=== PATIENT | female | born 1995 | race African-American/Black ===

== ENCOUNTER 2022-04-08 18:00 | Inpatient (IN) | payer BC, OTHER ==
[2022-04-09] MEDS ORDERED: Lidocaine 1% (PF) 30 ML VIAL SC PRN (04:26)
[2022-04-09] MEDS ORDERED: HYDROcodone/Acetaminophen 5/325 mg Tablet PO PRN ×3 (04:26→10:06)
[2022-04-09] MEDS ORDERED: Acetaminophen 500 MG TAB PO PRN (04:26)
[2022-04-09] MEDS ORDERED: NS w/ Oxytocin 30 units 500 ML IV SCH ×3 (04:26→10:06)
[2022-04-09] MEDS ORDERED: Lactated Ringer's 1,000 ML IV SCH (04:26)
[2022-04-09] MEDS ORDERED: Ibuprofen 800 MG TAB PO PRN (04:26)
[2022-04-09] MEDS ORDERED: Misoprostol 200 MCG TAB PR PRN (04:26)
[2022-04-09] MEDS ORDERED: Promethazine HCl 25 MG/ML VIAL IM PRN ×3 (04:26→10:06)
[2022-04-09] MEDS ORDERED: Carboprost 250 MCG/ML AMP IM PRN (04:26)
[2022-04-09] MEDS ORDERED: hydrALAZINE 20 MG/ML VIAL SLOW IVP PRN ×2 (04:26→10:06)
[2022-04-09] MEDS ORDERED: Diphenoxylate HCl/Atropine Tablet PO PRN (04:26)
[2022-04-09] MEDS ORDERED: Butorphanol Tartrate 1 MG/ML VIAL SLOW IVP PRN (04:26)
[2022-04-09] MEDS ORDERED: Methylergonovine 0.2 MG/ML VIAL IM PRN (04:26)
[2022-04-09] MEDS ORDERED: Ondansetron PF 4 MG/2 ML Vial IVP PRN ×3 (04:26→10:06)
[2022-04-09 05:18] LABS: Hemoglobin 10.3 g/dL (12.0-15.5); Mean Corpuscular Hemoglobin 22.5 pg (27.0-33.0); Mean Corpuscular Volume 70.3 fl (81.6-98.3); Platelet Count 179 10x3/uL (150-450); RBC Distribution Width 23.2 % (11.5-14.5); Red Blood Cell (RBC) Count 4.58 10x6/uL (3.90-5.03); White Blood Cell (WBC) Count 12.3 10x3/uL (3.5-10.5)
[2022-04-09 05:28] VITALS: BMI 29.4
[2022-04-09 05:35] LABS: Syphilis Antibody Nonreactive (Nonreactive); Syphilis Antibody Index 0.06 S/CO (<1.00 Non-Reactive)
[2022-04-09] MEDS ORDERED: Misoprostol 100 MCG TAB ONE (05:35)
[2022-04-09 05:36] LABS: HBSAg Index 0.19 S/CO (0-0.99); Hep B Surf Ag Non-Reactive S/CO (NonReactive)
[2022-04-09] MEDS: Misoprostol 100 MCG TAB PO SCH ×2 (05:41→10:20)
[2022-04-09] MEDS ORDERED: Penicillin G Potassium 5 MILL.UNITS in Sodium Chloride 0.9% 100 ML IVPB SCH (05:45)
[2022-04-09] MEDS ORDERED: Famotidine/PF 20 mg/2ml Vial SLOW IVP PRN (06:19)
[2022-04-09] MEDS ORDERED: Bicitra 30 ML UDCUP PO PRN (06:19)
[2022-04-09] MEDS ORDERED: Azithromycin 500 MG VIAL ONE (06:20)
[2022-04-09] MEDS ORDERED: CEFAZOLIN 2 GM in Sodium Chloride 0.9% 100 ML IVPB SCH ×2 (06:30→14:00)
[2022-04-09 06:46] LABS: RapidComm Collect By CBN; pH (Cord, venous) 7.184 (7.250-7.350)
[2022-04-09] MEDS ORDERED: Dexamethasone 4 mg/ml Vial ONE (06:46)
[2022-04-09] MEDS ORDERED: Oxytocin 10 UNITS/ML VIAL ONE ×2 (06:46)
[2022-04-09] MEDS ORDERED: Fentanyl 100 MCG/2 ML VIAL ONE ×2 (06:46→06:51)
[2022-04-09] MEDS ORDERED: Midazolam HCl 2 mg/2 ml Vial ONE (06:46)
[2022-04-09] MEDS ORDERED: PROPOFOL 20 ML ONE (06:46)
[2022-04-09] MEDS ORDERED: Ondansetron PF 4 MG/2 ML Vial ONE (06:46)
[2022-04-09] MEDS ORDERED: Succinylcholine 200 MG/10 ml SYRINGE FS ONE (06:46)
[2022-04-09] MEDS ORDERED: Ketorolac Tromethamine 30 MG/ML VIAL ONE (06:46)
[2022-04-09 06:47] LABS: RapidComm Collect By CBN
[2022-04-09] MEDS ORDERED: diphenhydrAMINE 50 MG/ML VIAL IVP PRN (06:53)
[2022-04-09] MEDS ORDERED: diphenhydrAMINE 50 MG/ML VIAL IM PRN (06:53)
[2022-04-09] MEDS ORDERED: diphenhydrAMINE 25 MG CAP PO PRN ×2 (06:53→10:06)
[2022-04-09] MEDS ORDERED: Zolpidem Tartrate 5 MG TAB PO PRN (06:53)
[2022-04-09] MEDS ORDERED: fentaNYL Citrate/PF 1,000 MCG in Sodium Chloride 0.9% 30 ML IV PRN ×2 (06:53→21:51)
[2022-04-09] MEDS ORDERED: Naloxone HCl 0.4 mg/ml Vial IV PRN (06:53)
[2022-04-09] MEDS ORDERED: Glycopyrrolate 0.2 MG/ML 5 ML SYRINGE ONE (06:53)
[2022-04-09] MEDS ORDERED: Communication Order-Pharmacy FS SCH (07:00)
[2022-04-09] MEDS: metroNIDAZOLE 500 MG in Premix Bag 1 BAG IVPB SCH ×3 (09:05→23:31)
[2022-04-09] MEDS ORDERED: Penicillin G 2.5 MILL.units 2.5 MILL.UNITS in Premix Bag 1 BAG IVPB SCH (09:45)
[2022-04-09] MEDS ORDERED: Boostrix 0.5 ML (Tdap) VIAL IM ONE (10:06)
[2022-04-09] MEDS ORDERED: Lanolin Ointment 7 GM TUBE TOP PRN (10:06)
[2022-04-09] MEDS ORDERED: Bisacodyl 10 MG SUPP PR PRN (10:06)
[2022-04-09] MEDS: Ferrous Sulfate 325 MG TAB PO SCH ×2 (11:05→21:48)
[2022-04-09] MEDS: Docusate 100 MG CAP PO SCH ×2 (11:05→21:48)
[2022-04-09] MEDS: Prenatal Vitamin 1 TAB PO SCH (11:06)
[2022-04-09] MEDS: Ketorolac Tromethamine 30 MG/ML VIAL IVP SCH ×3 (12:04→23:31)
[2022-04-09] MEDS: ceFAZolin 2 GM/Dextrose 50 ML 2 GM in Premix Bag 1 BAG IVPB SCH ×2 (14:35→21:48)
[2022-04-10 04:22] LABS: Platelet Count 148 10x3/uL (150-450)
[2022-04-10 04:23] LABS: Hemoglobin 7.8 g/dL (12.0-15.5); Mean Corpuscular Hemoglobin 22.8 pg (27.0-33.0); Mean Corpuscular Volume 71.3 fl (81.6-98.3); Red Blood Cell (RBC) Count 3.42 10x6/uL (3.90-5.03); White Blood Cell (WBC) Count 14.1 10x3/uL (3.5-10.5)
[2022-04-10] MEDS: ceFAZolin 2 GM/Dextrose 50 ML 2 GM in Premix Bag 1 BAG IVPB SCH ×3 (05:22→21:37)
[2022-04-10] MEDS: Ketorolac Tromethamine 30 MG/ML VIAL IVP SCH (05:24)
[2022-04-10] MEDS ORDERED: HYDROcodone/Acetaminophen 5/325 mg Tablet PO PRN (07:00)
[2022-04-10] MEDS: metroNIDAZOLE 500 MG in Premix Bag 1 BAG IVPB SCH ×3 (08:59→23:47)
[2022-04-10] MEDS: Simethicone Chewable 80 MG TAB PO PRN (09:00)
[2022-04-10] MEDS: HYDROcodone/Acetaminophen 5/325 mg Tablet PO PRN ×3 (09:00→21:38)
[2022-04-10] MEDS: Ferrous Sulfate 325 MG TAB PO SCH ×2 (09:00→21:37)
[2022-04-10] MEDS: Docusate 100 MG CAP PO SCH ×2 (09:03→21:38)
[2022-04-10] MEDS: Prenatal Vitamin 1 TAB PO SCH (09:03)
[2022-04-10] MEDS ORDERED: Ibuprofen 800 MG TAB PO SCH ×2 (14:00→14:30)
[2022-04-10] MEDS: Ibuprofen 800 MG TAB PO SCH (21:38)
[2022-04-11] MEDS: CEFAZOLIN 2 GM in Sodium Chloride 0.9% 100 ML IVPB SCH ×2 (06:01→14:37)
[2022-04-11] MEDS: Ibuprofen 800 MG TAB PO SCH ×3 (06:02→21:38)
[2022-04-11] MEDS: metroNIDAZOLE 500 MG in Premix Bag 1 BAG IVPB SCH ×2 (09:16→16:47)
[2022-04-11] MEDS: Ferrous Sulfate 325 MG TAB PO SCH ×2 (09:16→21:37)
[2022-04-11] MEDS: Prenatal Vitamin 1 TAB PO SCH (09:17)
[2022-04-11] MEDS: Simethicone Chewable 80 MG TAB PO PRN (09:17)
[2022-04-11] MEDS: Docusate 100 MG CAP PO SCH ×2 (09:17→21:38)
[2022-04-11] MEDS: HYDROcodone/Acetaminophen 5/325 mg Tablet PO PRN ×2 (10:04→16:05)
[2022-04-11] MEDS: metroNIDAZOLE 500 MG TAB PO SCH (21:37)
[2022-04-11] MEDS: Cephalexin 500 MG CAP PO SCH (21:38)
[2022-04-12] MEDS: Ibuprofen 800 MG TAB PO SCH ×3 (06:04→20:53)
[2022-04-12] MEDS: Prenatal Vitamin 1 TAB PO SCH (09:42)
[2022-04-12] MEDS: Docusate 100 MG CAP PO SCH ×2 (09:42→20:51)
[2022-04-12] MEDS: Cephalexin 500 MG CAP PO SCH ×3 (09:44→20:50)
[2022-04-12] MEDS: metroNIDAZOLE 500 MG TAB PO SCH ×3 (09:44→20:50)
[2022-04-12] MEDS: Ferrous Sulfate 325 MG TAB PO SCH ×2 (09:44→20:50)
[2022-04-12 22:12] VITALS: BP 119/73; TEMP 99.2
== END 2022-04-12 22:50 | disposition home or self-care (01) | DRG 788 ==
LOC: CSHLD 04-09 04:21 → CSHPP 04-09 10:50
PROVIDERS: ADMIT Family Medicine; ATTEND Family Medicine
PROC: 10D00Z1 Extraction of Products of Conception, Low, Open Approach (ICD-10-PCS; principal; 2022-04-09)
PROC: 3E0P7VZ Introduction of Hormone into Female Reproductive, Via Natural or Artificial Opening (ICD-10-PCS; 2022-04-09)
PROC: 3E0334Z Introduction of Serum, Toxoid and Vaccine into Peripheral Vein, Percutaneous Approach (ICD-10-PCS; 2022-04-09)
DX: O36.5930 Maternal care for other known or suspected poor fetal growth, third trimester, not applicable or unspecified (principal); Z3A.37 37 weeks gestation of pregnancy; Z37.0 Single live birth; O76 Abnormality in fetal heart rate and rhythm complicating labor and delivery; D64.9 Anemia, unspecified; O99.02 Anemia complicating childbirth; Z79.899 Other long term (current) drug therapy; O26.893 Other specified pregnancy related conditions, third trimester; Z67.21 Type B blood, Rh negative
CPT/HCPCS: 36415; 51702; 74018; 82805; 85027; 85461; 86780; 86850; 86870; 86900; 86901; 87340; 88307; 90384; 96372; J0690; J1100; J1885; J2250; J2405; J2540; J2590; J2704; J3010; J3490